=== PATIENT | female | born 1945 | race Caucasian/White ===

== ENCOUNTER 2016-10-13 09:39 | Emergency (ER) | payer OTHER, MEDICARE ==
[~2016-10-13 09:39] MED LIST: ABILIFY5 M1 PO; ALBUTEROL2.5 MG/3 M INH/SOL; ALDACTONE25 MG PO; BUFFERIN LOW DO81 MG PO; CLONAZEPAM1 M2 PO; COLACE100 M1 PO; CYANOCOBAL1000 MCG/2 IM; CYMBALTA60 M1 PO; FLUOXETINE HCL40 M1 PO; LAMICTAL200 M1 PO; LANTUS SOL100 UNIT/1 SC; LASIX80 M1 PO; LEVOCETIRIZINE D5 M1 PO; LEVOTHYROXINE137 MCG PO; LYRICA100 M1 PO; METANX 2.8 MG-21 TAB PO; MIRTAZAPINE45 M1 PO; NEURONTIN300 MG; NOVOLOG100 UNIT/2 SC; PERCOCET 325 MG1 TAB PO; PRAVACHOL80 M1 PO; PROAIR HFA8.5 GM INH; SINGULAIR10 M1 PO; SPIRIVA18 MCG INH; TOPROL XL25 M1 PO; TRAZODONE100 MG PO
[2016-10-13 10:12] VITALS: BP 131/64
--- NOTE | 2016-10-13 10:26 | ED AMS/SEIZURE/WEAK/DIZZY ---
History of Present Illness General Chief Complaint: Altered Mental Status Stated Complaint: SLURRING WORDS IN PAIN CLINIC Source: patient, family, old records Exam Limitations: clinical condition, intoxication Vital Signs & Intake/Output Vital Signs & Intake/Output Vital Signs Date Time Temp Pulse Resp B/P B/P Pulse O2 O2 Flow FiO2 Mean Ox Delivery Rate 10/13 1012 97.0 54 18 131/64 97 Nasal 3.0L Cannula 10/13 1009 Room Air 3.0L 10/13 0944 98.0 60 20 128/65 98 Room Air Allergies Coded Allergies: Penicillins (RASH 10/13/16) Yeast (RASH 10/13/16) Uncoded Allergies: FERRIC AMMONIUM CITRATE (RASH 10/13/16) LETTUCE (RASH 04/02/15) Reconcile Medications Albuterol Sulfate 2.5 MG/3 ML (0.083 %) VIAL.NEB 1 Vial INH/MIRTHA Q4P PRN COPD (Reported) Albuterol Sulfate (Proair Hfa) 90 MCG HFA.AER.AD 2 PUF INH Q4-6 PRN PRN COPD (Reported) Aripiprazole (Abilify) 5 MG TABLET 1 TAB PO QPM MENTAL HEALTH (Reported) Aspirin (Ecotrin*) 81 MG TABLET.DR 1 TAB PO DAILY HEART HEALTH (Reported) Atorvastatin Calcium 20 MG TABLET 1 TAB PO QPM CHOLESTEROL (Reported) Bupropion HCl 75 MG TABLET 1 TAB PO DAILY MENTAL HEALTH (Reported) Clonazepam 1 MG TABLET 1 TAB PO DAILY PRN ANXIETY (Reported) Clonazepam 1 MG TABLET 2 TAB PO QPM PRN ANXIETY (Reported) Cyanocobalamin (Vitamin B-12) (Cyanocobalamin Injection) 1,000 MCG/ML VIAL 1 ML IM Q30D VITAMIN SUPPORT (Reported) Docusate Sodium (Colace) 100 MG CAPSULE 1 CAP PO BID STOOL SOFTENER (Reported ) Duloxetine HCl (Cymbalta) 60 MG CAPSULE.DR 1 CAP PO QPM MENTAL HEALTH ( Reported) Fluoxetine HCl 40 MG CAPSULE 1 CAP PO QAM MENTAL HEALTH (Reported) Furosemide (Lasix) 80 MG TABLET 1 TAB PO DAILY WATER RETENTION (Reported) Hydromorphone HCl (Hydromorphone ER) 8 MG TAB.ER.24H 1 TAB PO QPM PAIN ( Reported) Insulin Aspart (Novolog) (Unknown Strength) VIAL (Unknown Dose) SC SEE SLIDING SCALE DIABETES (Reported) Insulin Glargine,Hum.rec.anlog (Lantus Solostar) 100 UNIT/ML (3 ML) INSULN.PEN 90 U SC DAILY DIABETES (Reported) Lamotrigine (Lamictal) 200 MG TABLET 1 TAB PO QPM MENTAL HEALTH (Reported) Levocetirizine Dihydrochloride 5 MG TABLET 1 TAB PO QPM COPD (Reported) Levothyroxine Sodium 137 MCG TABLET 1 TAB PO DAILY AC THYROID (Reported) Metoprolol Succ XL (Toprol XL) 25 MG TAB 1 TAB PO QPM BP (Reported) Mirtazapine 45 MG TABLET 1 TAB PO QPM PRN SLEEP (Reported) Montelukast Sodium (Singulair) 10 MG TABLET 1 TAB PO DAILY COPD (Reported) Oxycodone HCl 15 MG TABLET 1 TAB PO Q8 PRN PAIN (Reported) Pravastatin Sodium (Pravachol) 80 MG TABLET 1 TAB PO DAILY CHOLESTEROL ( Reported) Pregabalin (Lyrica) 100 MG CAPSULE 1 CAP PO TID PAIN (Reported) Spironolactone (Aldactone) 25 MG TABLET 1 TAB PO DAILY WATER RETENTION ( Reported) Tiotropium [place] (Spiriva) 18 MCG CAP.W.DEV 1 CAP INH DAILY COPD (Reported) Triage Note: PT PRESENTS TO ER FROM PAIN CLINIC FOR SLURRED SPEECH. PER FAMILY MEMBER PT OCCASIONALLY HAS SLURRED SPEECH WHEN SHE IS TIRED BUT TODAY IT IS WORSE. PT IS ALERT AND ORIENTED X3 AND ANSWERING ALL QUESTIONS. PT NOTED TO BE SLURRING SPEECH, ALL OTHER NEUROS INTACT. PT STATES SHE LAST TOOK PAIN MEDS LAST PM (PT STATES SHE TOOK TWO OXYCODONE. PT HAS NO OTHER COMPLAINTS Triage Nurses Notes Reviewed? yes Onset: Just prior to arrival Duration: minute(s):, constant, continues in ED Timing: recent history Severity: moderate, severe Modifying Factors: Improves With: rest. Worsens With: medication. LMP (ages 10-50): post menopausal : No Patient currently breastfeeds: No HPI: Spouse reports patient fell 5 days prior to admission striking her head on the wall without loss of consciousness and has fallen several times over the last year. He reports that there has been episodic slurring of words fatigue improved after napping. Prior to admission she was noted to have slurred speech in the pain clinic and is unclear about what medication she took this morning or her pain medicine she took last night. She denies fever chills nausea vomiting diarrhea abdominal pain chest pain shortness of breath headache dysuria rash bleeding change in bowel bladder habit. Past History Travel History Traveled to [place] past 21 day No Medical History Any Pertinent Medical History? see below for history Neurological: NONE Cardiovascular: hypertension, hyperlipidemia Respiratory: asthma, emphysema Hepatic: NONE Renal: NONE Psychiatric: bipolar disease, chronic pain disorder Endocrine: diabetes, hypothyroidism History of MRSA: No History of VRE: No History of CDIFF: No Influenza Vaccine: 02/06/15 Surgical History Surgical History: coccyx fracture hysterectomy Psychosocial History Who do you live with Spouse Services at Home None What is your primary language Bulgarian Tobacco Use: Quit >30 days ago ETOH Use: denies use Illicit Drug Use: denies illicit drug use Family History Family History, If Any: FATHER (CHF, Hypertension, diabetes mellitus). MOTHER (CHF). Hx Contributory? No Review of Systems Review of Systems Constitutional: Reports: see HPI, weakness. EENTM: Reports: no symptoms. Respiratory: Reports: no symptoms. Cardiovascular: Reports: no symptoms. GI: Reports: no symptoms. Genitourinary: Reports: no symptoms. Musculoskeletal: Reports: no symptoms. Skin: Reports: no symptoms. Neurological/Psychological: Reports: see HPI. Hematologic/Endocrine: Reports: no symptoms. Immunologic/Allergic: Reports: no symptoms. All Other Systems: Reviewed and Negative Physical Exam Physical Exam General Appearance: well developed/nourished, alert, lethargic, mild distress, obese Head: atraumatic, normal appearance Eyes: Bilateral: normal appearance, PERRL, EOMI. Ears, Nose, Throat: normal pharynx, normal ENT inspection, hearing grossly normal Neck: normal inspection, supple, full range of motion, no midline tenderness Respiratory: normal breath sounds, chest non-tender, no respiratory distress, quiet respiration, lungs clear Cardiovascular: regular rate/rhythm, normal peripheral pulses, norml femoral pulses equa Peripheral Pulses: 4+ carotid (R), 4+ carotid (L) Gastrointestinal: normal bowel sounds, soft, non-tender, no organomegaly Back: normal inspection, normal range of motion Extremities: normal range of motion, no ligament instability Neurologic/Psych: no motor/sensory deficits, awake, alert, oriented x 3, normal mood/affect, country singer II-XII nml as tested Reflexes: 2+: bicep (R), bicep (L). Skin: intact, normal color, warm/dry Lymphatic: no anterior cervical alex Core Measures ACS in differential dx? Yes ASA ordered for poss ACS? No-ACS ruled out CVA/TIA Diagnosis: No Severe Sepsis Present: No Septic Shock Present: No Progress Differential Diagnosis: alcohol intoxication, CVA/stroke, drug intoxication, electrolyte imbalance, hypoglycemia, pneumonia, UTI/pyelo Plan of Care: Orders Procedure Date/time Status URINE DRUG SCREEN FOR ER ONLY 10/13 101 Complete URINALYSIS 10/13 101 Complete TROPONIN LEVEL 10/13 101 Complete MAGNESIUM 10/13 101 Complete ETHANOL 10/13 101 Complete COMPREHENSIVE METABOLIC PANEL 10/13 101 Complete CBC WITHOUT DIFFERENTIAL 10/13 101 Complete ACETONE 10/13 101 Complete Laboratory Tests 10/13/16 1129: Urine Opiates Screen 1373.00, Methadone Screen 61, Barbiturate Screen < 60, Ur Phencyclidine Scrn < 6.00, Amphetamines Screen < 100, U Benzodiazepines Scrn < 85, Urine Cocaine Screen < 50, Urine Cannabis Screen < 5.00, Urinalysis LIGHT H , Urine Color PINK H, Urine Clarity CLEAR, Urine pH 6.0, Ur Specific [place] 1.010, Urine Protein NEG, Urine Ketones NEG, Urine Nitrite NEG, Urine Bilirubin NEG, Urine Urobilinogen 0.2, Ur Leukocyte Esterase NEG, Ur Microscopic SEDIMENT EXAMINED, Urine RBC RARE, Urine WBC RARE, Ur Epithelial Cells FEW, Urine Bacteria RARE H, Urine Mucus RARE, Urine Hemoglobin SMALL H, Urine Glucose NEG 10/13/16 1035: Anion Gap 13, Estimated GFR > 60, BUN/Creatinine Ratio 30.0 H, Glucose 136 H, Calcium 9.2, Magnesium 1.9, Total Bilirubin 0.4, AST 18, ALT 38, Alkaline Phosphatase 194 H, Troponin I < 0.01, Total Protein 7.1, Albumin 4.0, Globulin 3.1, Albumin/Globulin Ratio 1.3, CBC w Diff NO MAN DIFF REQ, RBC 4.11 L, MCV 88.7, MCH 29.3, RDW 13.9, MPV 8.4, Gran % 74.7, Lymphocytes % 13.7 L, Monocytes % 7.6, Eosinophils % 3.8, Basophils % 0.2, Absolute Granulocytes 8.6 H, Absolute Lymphocytes 1.6, Absolute Monocytes 0.9 H, Absolute Eosinophils 0.4, Absolute Basophils 0, PUBS MCHC 33.0, Serum Alcohol < 10.0, Acetone Level NEGATIVE Diagnostic Imaging: Viewed by Me: Radiology Read, CT Scan. Discussed w/RAD: Radiology Read, CT Scan. Radiology Impression: no acute abnormality CXR Impression: no acute abnormality, no infiltrates Initial ED EKG: none Departure Departure Time of Disposition: 1223 Disposition: HOME OR SELF CARE Condition: Stable Clinical Impression Primary Impression: Medication side effects Qualifiers: Encounter type: initial encounter Qualified Code: T88.7XXA - Unspecified adverse effect of drug or medicament, initial encounter Secondary Impressions: Polypharmacy Referrals: TANIA SORIANO,MCKENZIE Plata (PCP/Family) Departure Forms: Customer Survey General Discharge Information
[2016-10-13 10:43] LABS: ABSOLUTE BASOPHIL COUNT 0 /CUMM (0.0-0.2); ABSOLUTE EOSINOPHIL COUNT 0.4 /CUMM (0.0-0.7); ABSOLUTE GRANULOCYTE CT 8.6 /CUMM (1.4-6.5); ABSOLUTE LYMPH COUNT 1.6 /CUMM (1.2-3.4); ABSOLUTE MONOCYTE COUNT 0.9 /CUMM (0.10-0.60); BASOPHIL % 0.2 % (0.0-2.0); EOSINOPHIL % 3.8 % (0-5); GRANULOCYTE % 74.7 % (42.2-75.2); HEMATOCRIT 36.5 % (37-47); MEAN CORPUSCULAR HGB 29.3 PG (27.0-31.0); MEAN CORPUSCULAR VOLUME 88.7 FL (81.0-99.0); MEAN PLATELET VOLUME 8.4 FL (7.4-10.4); PLATELET COUNT 257 /CUMM (130-400); RBC DISTRIBUTION WIDTH 13.9 % (11.5-14.5); RED BLOOD CELL CT 4.11 /CUMM (4.20-5.40); WHITE BLOOD CELL COUNT 11.4 /CUMM (4.8-10.8)
--- NOTE | 2016-10-13 10:58 | CT SCAN REPORT ---
EXAMINATION: CT HEAD WITHOUT CONTRAST CLINICAL INFORMATION: Slurred speech. Polypharmacy. COMPARISON: CT head 04/02/2015. TECHNIQUE: Contiguous axial imaging was performed from the skull base to vertex without intravenous administration of contrast. DLP: 624.95 mGy-cm FINDINGS: There is no acute intracranial hemorrhage or abnormal extra-axial collection. No intracranial mass effect or midline shift. Lateral and third ventricles are normal. No hydrocephalus. Pederson-white matter differentiation is preserved and there is no evidence of acute territorial infarct. The calvarium and skull base are intact. Mastoid air cells and middle ear cavities are well aerated. Visualized paranasal sinuses are well-aerated. IMPRESSION: Unremarkable CT scan of the head. No evidence acute territorial infarct or hemorrhage.
--- NOTE | 2016-10-13 11:05 | RADIOLOGY REPORT ---
EXAMINATION: XR PORTABLE CHEST CLINICAL INFORMATION: Slurred speech and weakness. COMPARISON: 04/02/2015. TECHNIQUE: Portable frontal view of the chest was obtained. FINDINGS: The cardiomediastinal silhouette is stable appearing with mild cardiac enlargement. There is stable minimal discoid atelectasis or scarring just lateral to the right heart margin in the right lower lung field likely chronic scarring. There is new minimal discoid atelectasis at the left lung base laterally. The lungs and pleural spaces otherwise appear clear without evidence of congestion, consolidation, or significant appearing effusion or atelectasis. There is no evidence of pneumothorax or pulmonary edema. Included osseous structures appear largely unremarkable. IMPRESSION: No evidence of an acute intrathoracic process.
[2016-10-13] MEDS ORDERED: ASPIRIN EC81 M1 PO (11:27)
[2016-10-13] MEDS ORDERED: ATORVASTATIN CA20 M1 PO (11:29)
[2016-10-13] MEDS ORDERED: BUPROPION HCL75 M1 PO (11:30)
[2016-10-13] MEDS ORDERED: HYDROMORPHONE ER8 MG PO (11:35)
[2016-10-13] MEDS ORDERED: OXYCODONE HCL15 M1 PO (11:36)
== END 2016-10-13 12:36 ==
LOC: ERH 09:39
PROVIDERS: Emergency Medicine
DX: T50.905A Adverse effect of unspecified drugs, medicaments and biological substances, initial encounter (principal)
CPT/HCPCS: 80307; 81001; G0480

== ENCOUNTER 2016-11-03 13:15 | Emergency (ER) | payer OTHER, MEDICARE ==
[~2016-11-03] VITALS: Ht 165.1 cm; Wt 81.6 kg
[~2016-11-03 13:15] MED LIST changes: +ASPIRIN EC81 M1 PO; +ATORVASTATIN CA20 M1 PO; +BUPROPION HCL75 M1 PO; +HYDROMORPHONE ER8 MG PO; +OXYCODONE HCL15 M1 PO
--- NOTE | 2016-11-03 14:26 | RADIOLOGY REPORT ---
EXAMINATION: XR SHOULDER, RIGHT CLINICAL INFORMATION: Right shoulder pain. History of surgery 10 weeks ago. COMPARISON: CXR from 10/13/2016 TECHNIQUE: Right shoulder, 3 views FINDINGS: The visualized clavicle is intact and there is normal alignment at the acromioclavicular joint . On the AP view acquired with the humerus in internal rotation, the acromiohumeral distance is narrowed to approximately 0.4 cm. The cortical bone at the acromial undersurface is not optimally visualized; query with there was recent acromioplasty. The glenohumeral joint space is maintained. A single intact suture anchor extends through the greater tuberosity into the humeral head. There is no acute fracture or overt soft tissue swelling. IMPRESSION: 1. No acute fracture or focal soft tissue swelling. 2. Intact suture anchor is present in the humeral head. 3. The acromiohumeral distance narrowing observed on the AP, internal rotation view suggests presence of atrophy or tearing of the rotator cuff.
[2016-11-03 14:28] LABS: ABSOLUTE BASOPHIL COUNT 0.1 /CUMM (0.0-0.2); ABSOLUTE EOSINOPHIL COUNT 0.5 /CUMM (0.0-0.7); ABSOLUTE GRANULOCYTE CT 7.5 /CUMM (1.4-6.5); ABSOLUTE LYMPH COUNT 2.2 /CUMM (1.2-3.4); ABSOLUTE MONOCYTE COUNT 0.9 /CUMM (0.10-0.60); BASOPHIL % 0.6 % (0.0-2.0); EOSINOPHIL % 4.4 % (0-5); GRANULOCYTE % 67.7 % (42.2-75.2); MEAN CORPUSCULAR HGB 29.6 PG (27.0-31.0); MEAN CORPUSCULAR HGB CONC 33.6 G/DL (33.0-37.0); MEAN CORPUSCULAR VOLUME 88.3 FL (81.0-99.0); MEAN PLATELET VOLUME 8.3 FL (7.4-10.4); PLATELET COUNT 283 /CUMM (130-400); RBC DISTRIBUTION WIDTH 13.8 % (11.5-14.5); RED BLOOD CELL CT 3.96 /CUMM (4.20-5.40); WHITE BLOOD CELL COUNT 11.1 /CUMM (4.8-10.8)
--- NOTE | 2016-11-03 15:05 | ED AMS/SEIZURE/WEAK/DIZZY ---
History of Present Illness General Chief Complaint: Upper Extremity Problem Stated Complaint: R SHOULDER PAIN Source: patient Exam Limitations: no limitations, unable to give history (is) Vital Signs & Intake/Output Vital Signs & Intake/Output Vital Signs Date Time Temp Pulse Resp B/P B/P Pulse O2 O2 Flow FiO2 Mean Ox Delivery Rate 11/03 1548 97.1 56 18 168/74 98 Room Air 11/03 1349 95 Room Air 11/03 1347 95 Room Air 11/03 1318 97.7 56 16 173/70 95 Room Air 95% Allergies Coded Allergies: Penicillins (RASH 10/13/16) Yeast (RASH 10/13/16) Uncoded Allergies: FERRIC AMMONIUM CITRATE (RASH 10/13/16) LETTUCE (RASH 04/02/15) Reconcile Medications Albuterol Sulfate 2.5 MG/3 ML (0.083 %) VIAL.NEB 1 Vial INH/MIRTHA Q4P PRN COPD (Reported) Albuterol Sulfate (Proair Hfa) 90 MCG HFA.AER.AD 2 PUF INH Q4-6 PRN PRN COPD (Reported) Aripiprazole (Abilify) 5 MG TABLET 1 TAB PO QPM MENTAL HEALTH (Reported) Aspirin (Ecotrin*) 81 MG TABLET.DR 1 TAB PO DAILY HEART HEALTH (Reported) Atorvastatin Calcium 20 MG TABLET 1 TAB PO QPM CHOLESTEROL (Reported) Bupropion HCl 75 MG TABLET 1 TAB PO DAILY MENTAL HEALTH (Reported) Clonazepam 1 MG TABLET 1 TAB PO DAILY PRN ANXIETY (Reported) Clonazepam 1 MG TABLET 2 TAB PO QPM PRN ANXIETY (Reported) Cyanocobalamin (Vitamin B-12) (Cyanocobalamin Injection) 1,000 MCG/ML VIAL 1 ML IM Q30D VITAMIN SUPPORT (Reported) Docusate Sodium (Colace) 100 MG CAPSULE 1 CAP PO BID STOOL SOFTENER (Reported ) Duloxetine HCl (Cymbalta) 60 MG CAPSULE.DR 1 CAP PO QPM MENTAL HEALTH ( Reported) Fluoxetine HCl 40 MG CAPSULE 1 CAP PO QAM MENTAL HEALTH (Reported) Furosemide (Lasix) 80 MG TABLET 1 TAB PO DAILY WATER RETENTION (Reported) Hydromorphone HCl (Hydromorphone ER) 8 MG TAB.ER.24H 1 TAB PO QPM PAIN ( Reported) Insulin Aspart (Novolog) (Unknown Strength) VIAL (Unknown Dose) SC SEE SLIDING SCALE DIABETES (Reported) Insulin Glargine,Hum.rec.anlog (Lantus Solostar) 100 UNIT/ML (3 ML) INSULN.PEN 90 U SC DAILY DIABETES (Reported) Lamotrigine (Lamictal) 200 MG TABLET 1 TAB PO QPM MENTAL HEALTH (Reported) Levocetirizine Dihydrochloride 5 MG TABLET 1 TAB PO QPM COPD (Reported) Levothyroxine Sodium 137 MCG TABLET 1 TAB PO DAILY AC THYROID (Reported) Metoprolol Succ XL (Toprol XL) 25 MG TAB 1 TAB PO QPM BP (Reported) Mirtazapine 45 MG TABLET 1 TAB PO QPM PRN SLEEP (Reported) Montelukast Sodium (Singulair) 10 MG TABLET 1 TAB PO DAILY COPD (Reported) Oxycodone HCl 15 MG TABLET 1 TAB PO Q8 PRN PAIN (Reported) Pravastatin Sodium (Pravachol) 80 MG TABLET 1 TAB PO DAILY CHOLESTEROL ( Reported) Pregabalin (Lyrica) 100 MG CAPSULE 1 CAP PO TID PAIN (Reported) Spironolactone (Aldactone) 25 MG TABLET 1 TAB PO DAILY WATER RETENTION ( Reported) Tiotropium [place] (Spiriva) 18 MCG CAP.W.DEV 1 CAP INH DAILY COPD (Reported) Triage Note: PT HAD R ROTATOR CUFF SURGERY X10 WEEKS AGO. PT STATES INCREASED SEVERITY OF PAIN TO R SHOULDER AND UNABLE TO PARTICIPATE IN OUTPATIENT PT TODAY. PT ALSO C/O INCREASED "SLEEPINESS" WITH PAIN INTERMISSION COORDINATOR. Triage Nurses Notes Reviewed? yes Onset: Abrupt Duration: hour(s):, constant Timing: recent history Injury Environment: home No Modifying Factors: none HPI: 71-year-old female comes into emergency room for further evaluation of dizziness and lightheadedness and right shoulder pain. Patient reports that she had rotator cuff surgery done 10 weeks ago her right shoulder. She is on oxycodone 30 mg twice a day at home. She reports that she took her medication as normal today. She denies taking more medication than was prescribed. She felt very lightheaded and dizzy and reports that she still having continuing pain in her right shoulder. She's been undergoing physical therapy. She denies any chest pain or shortness of breath. Denies any loss of consciousness. (ALCON STUART) Past History Travel History Traveled to [place] past 21 day No Medical History Any Pertinent Medical History? see below for history Neurological: NONE Cardiovascular: hypertension, hyperlipidemia Respiratory: asthma, emphysema Hepatic: NONE Renal: NONE Musculoskeletal: R ROTATOR CUFF Psychiatric: bipolar disease, chronic pain disorder Endocrine: diabetes, hypothyroidism History of MRSA: No History of VRE: No History of CDIFF: No Surgical History Surgical History: coccyx fracture hysterectomy Psychosocial History Who do you live with Spouse Services at Home None What is your primary language Croatian Tobacco Use: Quit >30 days ago Family History Family History, If Any: FATHER (CHF, Hypertension, diabetes mellitus). MOTHER (CHF). Hx Contributory? No (ALCON STUART) Review of Systems Review of Systems Constitutional: Reports: no symptoms. EENTM: Reports: no symptoms. Respiratory: Reports: no symptoms. Cardiovascular: Reports: see HPI. GI: Reports: no symptoms. Genitourinary: Reports: no symptoms. Musculoskeletal: Reports: see HPI. Skin: Reports: no symptoms. Neurological/Psychological: Reports: no symptoms. Hematologic/Endocrine: Reports: no symptoms. Immunologic/Allergic: Reports: no symptoms. All Other Systems: Reviewed and Negative (ALCON STUART) Physical Exam Physical Exam General Appearance: well developed/nourished, alert, awake Head: atraumatic Eyes: Bilateral: normal appearance. Ears, Nose, Throat: normal ENT inspection, hearing grossly normal Neck: normal inspection Respiratory: normal breath sounds, no respiratory distress Cardiovascular: regular rate/rhythm Back: decreased range of motion (right shoulder), , no warmth, no redness, radial pulse intact, strength intact, Extremities: normal range of motion Neurologic/Psych: no motor/sensory deficits, awake, alert, oriented x 3, normal gait, normal mood/affect, prosthetist II-XII nml as tested Skin: intact, normal color Core Measures ACS in differential dx? No CVA/TIA Diagnosis: No Severe Sepsis Present: No Septic Shock Present: No (ALCON STUART) Progress Differential Diagnosis: arrythmia, alcohol intoxication, benign positional vertigo, CVA/stroke, dehydration, drug intoxication, encephalitis, electrolyte imbalance, GI bleed, intracranial Hem., intracranial mass/tumor, sepsis, UTI/ pyelo Plan of Care: Orders Procedure Date/time Status TROPONIN LEVEL 11/03 1319 Complete COMPREHENSIVE METABOLIC PANEL 11/03 1319 Complete CBC WITHOUT DIFFERENTIAL 11/03 1319 Complete EKG 06/28 1319 Active Laboratory Tests 11/03/165: Anion Gap 10, Estimated GFR > 60, BUN/Creatinine Ratio 23.3, Glucose 142 H, Calcium 9.0, Total Bilirubin 0.3, AST 15, ALT 27, Alkaline Phosphatase 201 H, Troponin I < 0.01, Total Protein 6.7, Albumin 4.0, Globulin 2.7, Albumin/ Globulin Ratio 1.5, CBC w Diff NO MAN DIFF REQ, RBC 3.96 L, MCV 88.3, MCH 29.6, RDW 13.8, MPV 8.3, Gran % 67.7, Lymphocytes % 19.4 L, Monocytes % 7.9, Eosinophils % 4.4, Basophils % 0.6, Absolute Granulocytes 7.5 H, Absolute Lymphocytes 2.2, Absolute Monocytes 0.9 H, Absolute Eosinophils 0.5, Absolute Basophils 0.1, PUBS MCHC 33.6 Diagnostic Imaging: Viewed by Me: Radiology Read. Discussed w/RAD: Radiology Read. Radiology Impression: SERVICE DATE: 11/03/16 EXAM TYPE: RAD - XRY- SHOULDER COMPLETE-RIGHT EXAMINATION: XR SHOULDER, RIGHT CLINICAL INFORMATION: Right shoulder pain. History of surgery 10 weeks ago. COMPARISON: CXR from 10/13 TECHNIQUE: Right shoulder, 3 views FINDINGS: The visualized clavicle is intact and there is normal alignment at the acromioclavicular joint . On the AP view acquired with the humerus in internal rotation, the acromiohumeral distance is narrowed to approximately 0.4 cm. The cortical bone at the acromial undersurface is not optimally visualized; query with there was recent acromioplasty. The glenohumeral joint space is maintained. A single intact suture anchor extends through the greater tuberosity into the humeral head. There is no acute fracture or overt soft tissue swelling. IMPRESSION: 1. No acute fracture or focal soft tissue swelling. 2. Intact suture anchor is present in the humeral head. 3. The acromiohumeral distance narrowing observed on the AP , internal rotation view suggests presence of atrophy or tearing of the rotator cuff. DICTATED BY: MANI JUNG MD DATE/TIME DICTATED:11/03/161413 SALES AUDIT CLERK:ARI DATE/TIME TRANSCRIBED:11/03/161413 Initial ED EKG: normal intervals, normal p-waves, normal sinus rhythm, rate (57) Comments: 11/03/2016 3:20:11 PM Clinically patient appears to be overmedicated on her narcotic pain meds. She needs to cut back on her pain medication at home. He is neurologically intact. No suspicion for stroke. No suspicion for septic joint. Afebrile. No white count. No warmth over right shoulder. Return if any other concerns. pt seen by dr mackenzie. (ALCON STUART) Departure Departure Disposition: HOME OR SELF CARE Condition: Stable Clinical Impression Primary Impression: Medication side effects Secondary Impressions: Near syncope Referrals: TANIA SORIANO,MCKENZIE Plata (PCP/Family) Additional Instructions: Cut back on your narcotic pain medication. Speak with your pain management doctor. Return if any concerns worsening symptoms. Please go over all results of today's visit with your primary care doctor. Contact your primary care doctor to let them know you were here in the emergency room. There may be nonspecific findings which may not be related to your visit today here in the emergency room but may require further evaluation and chronic monitoring by your primary care doctor. If you had a laceration today the chance of foreign body always remains. You should follow-up with your primary care doctor for recheck in 3-5 days for a wound check. If you had an x-ray done there is a chance that a fracture could have been missed on initial read and you should follow-up with your primary care doctor for repeat x-rays if symptoms persist. If your blood pressure was elevated here in the emergency room please have rechecked by her primary care doctor within the next 48 hours by your primary care doctor. If you were prescribed a narcotic here in the emergency room or any type of controlled substances you're not allowed to drive while taking this medication or operate any type of heavy machinery. Narcotics can make you feel lightheaded dizziness nausea and can cause constipation. You may need to black pickler a stool softener. Thank you for choosing [facility] emergency room. Please return to the emergency room immediately if you have any other concerns worsening of symptoms. Departure Forms: Customer Survey General Discharge Information (ALCON STUART) PA/CBX OPERATOR Co-Sign Statement Statement: ED Attending supervision documentation- [X] I saw and evaluated the patient. I have also reviewed all the pertinent lab results and diagnostic results. I agree with the findings and the plan of care as documented in the PA's/CBX OPERATOR's documentation. [X] I have reviewed the ED Record and agree with the PA's/CBX OPERATOR's documentation. [] Additions or exceptions (if any) to the PAs/CBX OPERATOR's note and plan are summarized below: [] (MIKKI SORIANO,JACQUELYN)
[2016-11-03 15:48] VITALS: BP 168/74
== END 2016-11-03 15:49 ==
LOC: ERH 13:15
PROVIDERS: Physician Assistant Medical
DX: M25.511 Pain in right shoulder (principal); T40.2X5A Adverse effect of other opioids, initial encounter; R55 Syncope and collapse
CPT/HCPCS: 73030-RT; 93005; 93010